=== PATIENT | female | born 1960 | race African-American/Black ===

== ENCOUNTER 2018-04-11 18:42 | Emergency (ER) | payer OTHER, MEDICAID ==
[~2018-04-11] VITALS: Ht 167.6 cm; Wt 71.0 kg
[2018-04-12] MEDS ORDERED: IBUPROFEN 600MG TABLET PO ONE (01:30)
[2018-04-12 01:46] VITALS: BP 145/85
== END 2018-04-12 01:53 | disposition home or self-care (01) ==
LOC: ER 18:42
DX: B85.0 Pediculosis due to Pediculus humanus capitis (principal); H92.02 Otalgia, left ear; E11.9 Type 2 diabetes mellitus without complications; I10 Essential (primary) hypertension; Z72.0 Tobacco use
CPT/HCPCS: 82962; 99282